=== PATIENT | male | born 1965 | race Caucasian/White ===

== ENCOUNTER 2017-03-08 16:55 | Observation (INO) | payer OTHER ==
[2017-03-08] VITALS (9 sets, daily range): BP systolic 114–167; BP diastolic 56–102; PULSE 70–107; RESP 13–18; TEMP 98–98.4; O2SAT 94–98
[~2017-03-08 16:55] MED LIST: IBUP-988 PO; LISI10TA3 PO; PERC5TAB12 PO; ZOFR4TAB PO
[2017-03-08] MEDS: NITROGLYCERIN 0.4 MG SL 25 TABS/BTL SL SCH ×2 (17:29→17:58)
[2017-03-08] MEDS ORDERED: SODIUM CHLORID 0.9% 500 ML INJ 500 ML IV ONE (17:30)
[2017-03-08] MEDS ORDERED: ASPIRIN 81 MG CHEW TAB PO ONE (17:30)
[2017-03-08] MEDS ORDERED: SODIUM CHLORIDE 0.9% FLUSH 10 ML FLUSH IVF PRN (17:30)
[2017-03-08] MEDS ORDERED: ONDANSETRON HCL 4 MG/2 ML VIAL IV PUSH ONE (17:30)
[2017-03-08] MEDS ORDERED: MORPHINE SULFATE 4 MG/ML INJ IV PUSH ONE (17:30)
--- NOTE | 2017-03-08 17:31 | PD ---
HPI Chief Complaint: Chest Pain Time Seen by Provider: 17:14 Travel History International Travel<30 days: No Contact w/Intl Traveler<30days: No Traveled to known affect area: No History of Present Illness HPI Patient is a 51-year-old male presenting to the emergency department for evaluation of chest pain. Patient states it started yesterday, while he was at work today it got progressively worse. The pain is localized over his left anterior chest wall, it radiates to his neck into his left arm. He states he feels slightly short of breath but denies any nausea, vomiting, fever, chills, headache, lightheadedness or dizziness, diaphoresis. He states pain increases with any exertion and he does report a nonproductive cough. He is a smoker, he has a history of hypertension. He has a significant family history, his father had an aneurysm as well as a heart attack and at age 42. His mother had a heart attack in her 50s and his brother at age 52 had a heart attack. PFSH Past Medical History Autoimmune Disease: No Blood Disorders: No Cancer: No Cardiovascular Problems: Yes (HTN) Diabetes: No Diminished Hearing: No Endocrine: No Glaucoma: No Genitourinary: No Hepatitis: No Hiatal Hernia: No Hypertension: Yes Immune Disorder: No Kidney Stones: Yes Musculoskeletal: Yes (injury to l knee) Neurologic: No Psychiatric: No Reproductive: No Respiratory: No Thyroid Disease: No Past Surgical History Abdominal Surgery: No AICD: No Body Medical Devices: none Cardiac Surgery: No Ear Surgery: No Endocrine Surgery: No Eye Surgery: No Genitourinary Surgery: Yes (lithotripsy) Joint Replacement: No Oral Surgery: Yes (wisdom teeth) Pacemaker: No Thoracic Surgery: No Tonsillectomy: Yes Social History Alcohol Use: Yes (OCCASIONAL) Tobacco Use: Yes (2PPD) Substance Use: No Allergies-Medications (Allergen,Severity, Reaction): Coded Allergies: No Known Allergies (Verified , 03/12/16) Reported Meds & Prescriptions Reported Meds & Active Scripts Active Zofran (Ondansetron HCl) 4 Mg Tab 4 Mg PO Q12HR PRN Percocet (Oxycodone-Acetaminophen) 5-325 mg Tab 1 Tab PO Q4H PRN Reported Advil (Ibuprofen) 200 Mg Tab 200 Mg PO Q6H PRN Lisinopril 10 Mg Tab 10 Mg PO DAILY Review of Systems Except as stated in HPI: all other systems reviewed are Neg General / Constitutional: No: Fever Eyes: No: Blurred Vision HENT: No: Headaches Cardiovascular: Positive: Chest Pain or Discomfort Respiratory: Positive: Shortness of Breath Gastrointestinal: No: Nausea, Vomiting, Abdominal Pain Physical Exam Narrative GENERAL: Obese, well-developed, well-nourished alert male. Resting comfortably in no acute distress. SKIN: Warm and dry. HEAD: Atraumatic. Normocephalic. EYES: Pupils equal and round. No scleral icterus. No injection or drainage. ENT: No nasal bleeding or discharge. Mucous membranes pink and moist. NECK: Trachea midline. No JVD. CARDIOVASCULAR: Regular rate and rhythm. RESPIRATORY: No accessory muscle use. Clear to auscultation. Breath sounds equal bilaterally. GASTROINTESTINAL: Abdomen soft, non-tender, nondistended. Hepatic and splenic margins not palpable. MUSCULOSKELETAL: Extremities without clubbing, cyanosis, or edema. No obvious deformities. NEUROLOGICAL: Awake and alert. No obvious cranial nerve deficits. Motor grossly within normal limits. Five out of 5 muscle strength in the arms and legs. Normal speech. PSYCHIATRIC: Appropriate mood and affect; insight and judgment normal. Data Data Last Documented VS Vital Signs Date Time Temp Pulse Resp B/P (MAP) Pulse Ox O2 Delivery O2 Flow Rate FiO2 03/08/17 19:20 13 03/08/17 19:18 76 132/77 (95) 98 Nasal Cannula 2.00 03/08/17 16:57 98.0 Orders Orders Electrocardiogram (03/08/17 ) Electrocardiogram (03/08/17 17:22) Ckmb (Isoenzyme) Profile (03/08/17 17:22) Complete Blood Count With Diff (03/08/17 17:22) Comprehensive Metabolic Panel (03/08/17 17:22) Magnesium (Mg) (03/08/17 17:22) Prothrombin Time / Inr (Pt) (03/08/17 17:22) Act Partial Throm Time (Ptt) (03/08/17 17:22) Troponin I (03/08/17 17:22) Lipase (03/08/17 17:22) Chest, Single Ap (03/08/17 17:22) Ecg Monitoring (03/08/17 17:22) Bilateral Bp Monitoring (03/08/17 17:22) Iv Access Insert/Monitor (03/08/17 17:22) Oximetry (03/08/17 17:22) Oxygen Administration (03/08/17 17:22) Aspirin Chew (Aspirin Chew) (03/08/17 17:30) Morphine Inj (Morphine Inj) (03/08/17 17:30) Sodium Chloride 0.9% Flush (Ns Flush) (03/08/17 17:30) Nitroglycerin Sl (Nitrostat Sl) (03/08/17 17:30) Sodium Chlorid 0.9% 500 Ml Inj (Ns 500 M (03/08/17 17:30) Ondansetron Inj (Zofran Inj) (03/08/17 17:30) Morphine Inj (Morphine Inj) (03/08/17 18:00) CKMB (03/08/17 17:40) CKMB% (03/08/17 17:40) Activity Bed Rest With Brp (03/08/17 19:21) Vital Signs (Adult) Q4H (03/08/17 19:21) Cardiac Rhythm .As Directed (03/08/17 19:21) Notify Dr: Other .PRN (03/08/17 19:21) Notify Dr. Parameters (03/08/17 19:21) Resp Oxygen Nasal Cannula (03/08/17 ) Diet Npo (03/09/17 Breakfast) Ckmb (Isoenzyme) Profile (03/08/17 19:21) Ckmb (Isoenzyme) Profile (03/08/17 22:21) Troponin I (03/08/17 19:21) Troponin I (03/08/17 22:21) Electrocardiogram (03/08/17 19:21) Electrocardiogram (03/08/17 22:21) ^ Obtain (03/08/17 19:21) Sodium Chloride 0.9% Flush (Ns Flush) (03/08/17 19:30) Sodium Chloride 0.9% Flush (Ns Flush) (03/08/17 21:00) Acetaminophen (Tylenol) (03/08/17 19:30) Morphine Inj (Morphine Inj) (03/08/17 19:30) Ondansetron Inj (Zofran Inj) (03/08/17 19:30) Nitroglycerin Sl (Nitrostat Sl) (03/08/17 19:30) Client Program Manager / Telemetry JONATHON.Q8H (03/08/17 19:21) Admit Order (Ed Use Only) (03/08/17 19:21) Labs Laboratory Tests Test 03/08/17 17:40 White Blood Count 11.9 TH/MM3 Red Blood Count 4.88 MIL/MM3 Hemoglobin 16.2 GM/DL Hematocrit 45.9 % Mean Corpuscular Volume 94.2 FL Mean Corpuscular Hemoglobin 33.2 PG Mean Corpuscular Hemoglobin Concent 35.3 % Red Cell Distribution Width 13.5 % Platelet Count 169 TH/MM3 Mean Platelet Volume 9.7 FL Neutrophils (%) (Auto) 56.5 % Lymphocytes (%) (Auto) 31.7 % Monocytes (%) (Auto) 7.3 % Eosinophils (%) (Auto) 3.6 % Basophils (%) (Auto) 0.9 % Neutrophils # (Auto) 6.7 TH/MM3 Lymphocytes # (Auto) 3.8 TH/MM3 Monocytes # (Auto) 0.9 TH/MM3 Eosinophils # (Auto) 0.4 TH/MM3 Basophils # (Auto) 0.1 TH/MM3 CBC Comment DIFF FINAL Differential Comment Prothrombin Time 10.1 SEC Prothromb Time International Ratio 1.0 RATIO Activated Partial Thromboplast Time 26.6 SEC Blood Urea Nitrogen 15 MG/DL Creatinine 1.44 MG/DL Random Glucose 103 MG/DL Total Protein 7.3 GM/DL Albumin 3.9 GM/DL Calcium Level 9.4 MG/DL Magnesium Level 1.9 MG/DL Alkaline Phosphatase 76 U/L Aspartate Amino Transf (AST/SGOT) 27 U/L Alanine Aminotransferase (ALT/SGPT) 26 U/L Total Bilirubin 0.4 MG/DL Sodium Level 140 MEQ/L Potassium Level 4.1 MEQ/L Chloride Level 106 MEQ/L Carbon Dioxide Level 27.6 MEQ/L Anion Gap 6 MEQ/L Estimat Glomerular Filtration Rate 52 ML/MIN Total Creatine Kinase 158 U/L Creatine Kinase MB 2.8 NG/ML Troponin I LESS THAN 0.02 NG/ML Lipase 221 U/L MDM Medical Decision Making Medical Screen Exam Complete: Yes Emergency Medical Condition: Yes Interpretation(s) Laboratory Tests Test 03/08/17 17:40 White Blood Count 11.9 TH/MM3 Red Blood Count 4.88 MIL/MM3 Hemoglobin 16.2 GM/DL Hematocrit 45.9 % Mean Corpuscular Volume 94.2 FL Mean Corpuscular Hemoglobin 33.2 PG Mean Corpuscular Hemoglobin Concent 35.3 % Red Cell Distribution Width 13.5 % Platelet Count 169 TH/MM3 Mean Platelet Volume 9.7 FL Neutrophils (%) (Auto) 56.5 % Lymphocytes (%) (Auto) 31.7 % Monocytes (%) (Auto) 7.3 % Eosinophils (%) (Auto) 3.6 % Basophils (%) (Auto) 0.9 % Neutrophils # (Auto) 6.7 TH/MM3 Lymphocytes # (Auto) 3.8 TH/MM3 Monocytes # (Auto) 0.9 TH/MM3 Eosinophils # (Auto) 0.4 TH/MM3 Basophils # (Auto) 0.1 TH/MM3 CBC Comment DIFF FINAL Differential Comment Prothrombin Time 10.1 SEC Prothromb Time International Ratio 1.0 RATIO Activated Partial Thromboplast Time 26.6 SEC Blood Urea Nitrogen 15 MG/DL Creatinine 1.44 MG/DL Random Glucose 103 MG/DL Total Protein 7.3 GM/DL Albumin 3.9 GM/DL Calcium Level 9.4 MG/DL Magnesium Level 1.9 MG/DL Alkaline Phosphatase 76 U/L Aspartate Amino Transf (AST/SGOT) 27 U/L Alanine Aminotransferase (ALT/SGPT) 26 U/L Total Bilirubin 0.4 MG/DL Sodium Level 140 MEQ/L Potassium Level 4.1 MEQ/L Chloride Level 106 MEQ/L Carbon Dioxide Level 27.6 MEQ/L Anion Gap 6 MEQ/L Estimat Glomerular Filtration Rate 52 ML/MIN Total Creatine Kinase 158 U/L Creatine Kinase MB 2.8 NG/ML Troponin I LESS THAN 0.02 NG/ML Lipase 221 U/L Vital Signs Date Time Temp Pulse Resp B/P (MAP) Pulse Ox O2 Delivery O2 Flow Rate FiO2 03/08/17 19:20 13 03/08/17 19:18 76 13 132/77 (95) 98 Nasal Cannula 2.00 03/08/17 17:55 95 16 137/65 (89) 96 2.00 03/08/17 17:39 96 16 114/56 (75) 98 Nasal Cannula 2.00 03/08/17 17:33 95 119/58 (78) 03/08/17 17:33 98 Nasal Cannula 2.00 03/08/17 17:31 98 Nasal Cannula 2.00 03/08/17 17:30 98 Nasal Cannula 2.00 03/08/17 17:29 85 141/89 (106) 03/08/17 16:57 98.0 107 18 167/102 (123) 98 Room Air Differential Diagnosis ACS versus USA versus NSTEMI versus other Narrative Course Patient is a 51-year-old male with a history of hypertension and tobacco use presenting with chest pain that started yesterday, the pain is worse with exertion. Patient's vital signs are stable, he does have a significant past family history. Labs and imaging ordered and pending. Chest x-ray shows no acute disease, labs reviewed, no acute abnormalities identified. Patient was given morphine, aspirin and 3 nitroglycerin. Pain is improved. At this time patient will be placed in the chest pain center for continued trending of his cardiac enzymes and for possibly more advanced testing. Patient and are agreeable to plan. Admit orders placed. Diagnosis Primary Impression: Chest pain Qualified Codes: R07.9 - Chest pain, unspecified Admitting Information Admitting Physician Requests: Observation Condition: Stable Josephine Kahn Mar 08, 2017 17:31
[2017-03-08 17:56] LABS: AUTOMATED NEUTROPHIL # 6.7 TH/MM3 (1.8-7.7); BASOPHIL # 0.1 TH/MM3 (0-0.2); BASOPHIL % 0.9 % (0.0-2.0); EOSINOPHIL # 0.4 TH/MM3 (0-0.4); EOSINOPHIL % 3.6 % (0.0-4.0); HEMATOCRIT 45.9 % (39.0-51.0); HEMOGLOBIN 16.2 GM/DL (13.0-17.0); LYMPH % 31.7 % (9.0-44.0); LYMPHOCYTE # 3.8 TH/MM3 (1.0-4.8); MEAN CELL VOLUME 94.2 FL (80.0-100.0); MEAN CORPUSCULAR HEMOGLOBIN 33.2 PG (27.0-34.0); MEAN CORPUSCULAR HGB CONC 35.3 % (32.0-36.0); MEAN PLATELET VOLUME 9.7 FL (7.0-11.0); MONO % 7.3 % (0.0-8.0); MONOCYTE # 0.9 TH/MM3 (0-0.9); NEUT % 56.5 % (16.0-70.0); PLATELET COUNT 169 TH/MM3 (150-450); RED BLOOD COUNT 4.88 MIL/MM3 (4.50-5.90); RED CELL DISTRIBUTION WIDTH 13.5 % (11.6-17.2); WHITE BLOOD COUNT 11.9 TH/MM3 (4.0-11.0)
[2017-03-08] MEDS ORDERED: MORPHINE SULFATE 2 MG/ML INJ IV PUSH ONE (18:00)
--- NOTE | 2017-03-08 18:00 | RADRPT ---
EXAM DATE/TIME: 03/08/2017 17:45 [facility] COMPARISON: No previous studies available for comparison. INDICATIONS : Chest pain. MEDICAL HISTORY : Hypertension. SURGICAL HISTORY : None. ENCOUNTER: Initial ACUITY: 2 days PAIN SCORE: 5/10 LOCATION: Left chest FINDINGS: A single view of the chest demonstrates the lungs to be symmetrically aerated without evidence of mas s, infiltrate or effusion. The cardiomediastinal contours are unremarkable. Osseous structures are intact. CONCLUSION: Normal examination. Juan Manuel Dudley MD on March 08, 2017 at 17:57 Board Certified Radiologist. This report was verified electronically.
[2017-03-08 18:08] LABS: PROTHROMBIN TIME - PATIENT 10.1 SEC (9.8-11.6)
[2017-03-08 18:25] LABS: ALBUMIN 3.9 GM/DL (3.4-5.0); AST (GOT) 27 U/L (15-37); BICARBONATE 27.6 MEQ/L (21.0-32.0); BLOOD UREA NITROGEN 15 MG/DL (7-18); CALCIUM 9.4 MG/DL (8.5-10.1); CHLORIDE 106 MEQ/L (98-107); CREATININE 1.44 MG/DL (0.60-1.30); GLOMERULAR FILTRATION RATE 52 ML/MIN (>89); GLUCOSE,RANDOM 103 MG/DL (74-106); LIPASE 221 U/L (73-393); MAGNESIUM 1.9 MG/DL (1.5-2.5); SODIUM (NA) 140 MEQ/L (136-145)
[2017-03-08 18:29] LABS: ALKALINE PHOSPHATASE 76 U/L (45-117); ALT (GPT) 26 U/L (12-78); TOTAL BILIRUBIN ADULT 0.4 MG/DL (0.2-1.0); TOTAL PROTEIN 7.3 GM/DL (6.4-8.2); TROPONIN I LESS THAN 0.02 NG/ML (0.02-0.05)
[2017-03-08] MEDS ORDERED: NITROGLYCERIN 0.4 MG SL 25 TABS/BTL SL PRN (19:30)
[2017-03-08] MEDS ORDERED: SODIUM CHLORIDE 0.9% FLUSH 10 ML FLUSH IV FLUSH PRN (19:30)
[2017-03-08] MEDS ORDERED: ACETAMINOPHEN 500 MG CPLT PO PRN (19:30)
[2017-03-08] MEDS ORDERED: ONDANSETRON HCL 4 MG/2 ML VIAL IV PUSH PRN (19:30)
[2017-03-08] MEDS ORDERED: MORPHINE SULFATE 4 MG/ML INJ IV PUSH PRN (19:30)
[2017-03-08] MEDS: SODIUM CHLORIDE 0.9% FLUSH 10 ML FLUSH IV FLUSH SCH (21:00)
[2017-03-08 21:29] LABS: TROPONIN I LESS THAN 0.02 NG/ML (0.02-0.05)
--- NOTE | 2017-03-08 21:39 | EKG ---
Date Performed: 03/08/2017 Time Performed: 17:18:09 PTAGE: 51 years EKG: Sinus rhythm NORMAL ECG Compared to prior electrocardiogram, rate has decreased PREVIOUS TRACING : 02/05/2007 20.10 DOCTOR: Patel Wylie Interpretating Date/Time 03/08/2017 21:39:03
[2017-03-09 00:04] VITALS: PULSE 68
[2017-03-09 00:13] VITALS: BP 134/80; PULSE 72; RESP 18; TEMP 97.9; O2SAT 94
[2017-03-09 00:42] LABS: TROPONIN I LESS THAN 0.02 NG/ML (0.02-0.05)
[2017-03-09 04:20] VITALS: BP 130/79; PULSE 68; RESP 18; TEMP 97.5; O2SAT 95
[2017-03-09 07:40] VITALS: BP 132/77; PULSE 66; RESP 18; TEMP 97.9; O2SAT 95
[2017-03-09 08:09] VITALS: PULSE 61
--- NOTE | 2017-03-09 08:55 | HHI.HP ---
HPI Primary Care Physician Tristian Horvath DO Chief Complaint Chest pain History of Present Illness 51-year-old male current smoker and hypertension presents to emergency room for further evaluation of chest pain. Onset yesterday afternoon around 3pm. Location left anterior chest. Radiation to left arm, left shoulder. Left arm described as numbness. Duration constant. Continues to have left arm numbness. No associated symptoms of nausea, vomiting, or diaphoresis. Endorses slight headache and mild dyspnea. No known precipitating factors. Relieving factors is laying down and "relaxing." Denies similar pain in the past. Endorses current nonproductive cough. No recent fever, chills, or illness. Review of Systems General: No fatigue,weakness, fever, chills, or recent illness change in appetite. Has been a general state of health. HEENT: No TRAN, no vision changes, no nasal congestion or drainage, no dysphasia CV: As stated above. No CP, pressure, palpitations, intermittent leg pain, dizziness RESP: Current smoker, nonproductive cough, dyspnea resolved. No wheeze or recent URI. GI: No nausea, vomiting, bowel changes, diarrhea, constipation, pain, distention , melena, blood in the stool. : No dysuria, urgency, frequency EXT: No lower leg edema, no paraesthesias MS: No discomfort or change in ROM, injury or trauma. NEURO: No difficulty with balance, LOC, motor/sensory deficits PSYCH: History of depression SKIN: No rashes, no concerning lesions Past Family Social History Allergies: Coded Allergies: No Known Allergies (Verified , 03/12/16) Past Medical History Hypertension, depression Past Surgical History Lithotripsy, tonsillectomy Reported Medications Reported Meds & Active Scripts Active Lisinopril 10 Mg Tab 10 Mg PO DAILY Active Ordered Medications Current Medications Medications (Trade) Dose Ordered Sig/Candelaria Route Start Time Stop Time Status Last Admin (NS Flush) 2 ml UNSCH PRN IVF 03/08/17 17:30 (NS Flush) 2 ml UNSCH PRN IV FLUSH 03/08/17 19:30 (NS Flush) 2 ml BID IV FLUSH 03/08/17 21:00 03/08/17 21:00 (Tylenol) 500 mg Q4H PRN PO 03/08/17 19:30 (Morphine Inj) 2 mg Q4H PRN IV PUSH 03/08/17 19:30 (Zofran Inj) 4 mg Q6H PRN IV PUSH 03/08/17 19:30 (Nitrostat Sl) 0.4 mg Q5M PRN SL 03/08/17 19:30 Family History Positive for early onset cardiovascular disease. Father age 42 from myocardial infarction. Father CABG 3 age 50. Social History Known hypertension. No known hyperlipidemia or diabetes. Current smoker 2 packs/daily. 70-alht-[id number] history. Endorses sedentary lifestyle. Works in [employer]. Past Cardiac testing None Physical Exam Vital Signs Vital Signs Date Time Temp Pulse Resp B/P (MAP) Pulse Ox O2 Delivery O2 Flow Rate FiO2 03/09/17 08:09 61 03/09/17 07:40 97.9 66 18 132/77 (95) 95 03/09/17 04:20 97.5 68 18 130/79 (96) 95 03/09/17 00:13 97.9 72 18 134/80 (98) 94 03/09/17 00:04 68 03/08/17 21:31 98.4 76 18 130/81 (97) 94 03/08/17 21:25 70 03/08/17 20:00 98 Nasal Cannula 2.00 03/08/17 19:20 13 03/08/17 19:18 76 13 132/77 (95) 98 Nasal Cannula 2.00 03/08/17 17:55 95 16 137/65 (89) 96 2.00 03/08/17 17:39 96 16 114/56 (75) 98 Nasal Cannula 2.00 03/08/17 17:33 95 119/58 (78) 03/08/17 17:33 98 Nasal Cannula 2.00 03/08/17 17:31 98 Nasal Cannula 2.00 03/08/17 17:30 98 Nasal Cannula 2.00 03/08/17 17:29 85 141/89 (106) 03/08/17 16:57 98.0 107 18 167/102 (123) 98 Room Air Physical Exam GENERAL: Alert WN, WD, NAD, pleasant, obese, male who appears older than stated age. HEAD: NC, AT CV: RRR, without murmur, rub, gallop, no JVD, S1-S2 no S3-S4. RESP: Clear lungs throughout bilateral, no crackles, wheeze, rhonchi, symmetrical chest rise, nonlabored, able to speak in full sentences ABD: Soft, NT, ND, no masses, positive bowel tones EXT: Pulses +24, no dependent edema MS: Normal tone 4 extremities, nontender, no obvious deformities, full range of motion NEURO: CN II through CN XII grossly intact, motor strength 5/5 PSYCH: A+O 3, pleasant affect, appropriate speech, mood, insight and judgment SKIN: Normal turgor, normal texture, no lesions, no rashes, multiple tattoos Laboratory Laboratory Tests Test 03/08/17 17:40 03/08/17 20:39 03/08/17 23:52 White Blood Count 11.9 Red Blood Count 4.88 Hemoglobin 16.2 Hematocrit 45.9 Mean Corpuscular Volume 94.2 Mean Corpuscular Hemoglobin 33.2 Mean Corpuscular Hemoglobin Concent 35.3 Red Cell Distribution Width 13.5 Platelet Count 169 Mean Platelet Volume 9.7 Neutrophils (%) (Auto) 56.5 Lymphocytes (%) (Auto) 31.7 Monocytes (%) (Auto) 7.3 Eosinophils (%) (Auto) 3.6 Basophils (%) (Auto) 0.9 Neutrophils # (Auto) 6.7 Lymphocytes # (Auto) 3.8 Monocytes # (Auto) 0.9 Eosinophils # (Auto) 0.4 Basophils # (Auto) 0.1 CBC Comment DIFF FINAL Differential Comment Prothrombin Time 10.1 Prothromb Time International Ratio 1.0 Activated Partial Thromboplast Time 26.6 Blood Urea Nitrogen 15 Creatinine 1.44 Random Glucose 103 Total Protein 7.3 Albumin 3.9 Calcium Level 9.4 Magnesium Level 1.9 Alkaline Phosphatase 76 Aspartate Amino Transf (AST/SGOT) 27 Alanine Aminotransferase (ALT/SGPT) 26 Total Bilirubin 0.4 Sodium Level 140 Potassium Level 4.1 Chloride Level 106 Carbon Dioxide Level 27.6 Anion Gap 6 Estimat Glomerular Filtration Rate 52 Total Creatine Kinase 158 143 146 Creatine Kinase MB 2.8 2.0 1.9 Troponin I LESS THAN 0.02 LESS THAN 0.02 LESS THAN 0.02 Lipase 221 Result Diagram: 03/08/17 1740 03/08/17 1740 Imaging Last Impressions Chest X-Ray 03/08/17 1722 Signed Impressions: Service Date/Time: Wednesday, March 08, 2017 17:45 - CONCLUSION: Normal examination. Juan Manuel Dudley MD Course EKG Normal sinus rhythm, normal axis, no ST or T-segment changes Caprini VTE Risk Assessment Caprini VTE Risk Assessment: No/Low Risk (score <= 1) Caprini Risk Assessment Model Point Value = 1 Point Value = 2 Point Value = 3 Point Value = 5 Age 41-60 Minor surgery BMI > 25 kg/m2 Swollen legs Varicose veins or History of unexplained or recurrent spontaneous Oral contraceptives or hormone replacement Sepsis (< 1 month) Serious lung disease, including pneumonia (< 1 month) Abnormal pulmonary function Acute myocardial infarction Congestive heart failure (< 1 month) History of inflammatory bowel disease Medical patient at bed rest Age 61-74 Arthroscopic surgery Major open surgery (> 45 min) Laparoscopic surgery (> 45 min) Malignancy Confined to bed (> 72 hours) Immobilizing plaster cast Central venous access Age >= 75 History of VTE Family history of VTE Factor V Leiden Prothrombin 11007H Lupus anticoagulant Anticardiolipin antibodies Elevated serum homocysteine Heparin-induced thrombocytopenia Other congenital or acquired thrombophilia Stroke (< 1 month) Elective arthroplasty Hip, pelvis, or leg fracture Acute spinal cord injury (< 1 month) Prophylaxis Regimen Total Risk Factor Score Risk Level Prophylaxis Regimen 0-1 Low Early ambulation 2 Moderate Order ONE of the following: *Sequential Compression Device (SCD) *Heparin 5000 units SQ BID 3-4 Higher Order ONE of the following medications: *Heparin 5000 units SQ TID *Enoxaparin/Lovenox 40 mg SQ daily (WT < 150 kg, CrCl > 30 mL/min) *Enoxaparin/Lovenox 30 mg SQ daily (WT < 150 kg, CrCl > 10-29 mL/min) *Enoxaparin/Lovenox 30 mg SQ BID (WT < 150 kg, CrCl > 30 mL/min) AND/OR *Sequential Compression Device (SCD) 5 or more Highest Order ONE of the following medications: *Heparin 5000 units SQ TID (Preferred with Epidurals) *Enoxaparin/Lovenox 40 mg SQ daily (WT < 150 kg, CrCl > 30 mL/min) *Enoxaparin/Lovenox 30 mg SQ daily (WT < 150 kg, CrCl > 10-29 mL/min) *Enoxaparin/Lovenox 30 mg SQ BID (WT < 150 kg, CrCl > 30 mL/min) AND *Sequential Compression Device (SCD) Assessment and Plan Assessment and Plan #1 Chest pain-admitted chest pain center. Ruled out with 3 sets of EKGs, cardiac enzymes, monitor overnight. Seen and evaluated by Dr. Thomas Braden. Proceed with exercise stress test this morning. If unremarkable plan for discharge home with follow-up with PCP. Patient is agreeable plan of care. #2 Tobacco use-strongly encouraged and stressed the importance of tobacco cessation. Instructed to quit smoking, especially important with known family early onset cardiovascular disease. #3 Hypertension-continue to lisinopril. Discussed importance of increasing daily activity, weight loss, and adapting to a low sodium diet. Britany Linn [facility] Mar 09, 2017 08:55
[2017-03-09] MEDS: SODIUM CHLORIDE 0.9% FLUSH 10 ML FLUSH IV FLUSH SCH (09:00)
--- NOTE | 2017-03-09 09:41 | EKG ---
Date Performed: 03/08/2017 Time Performed: 23:52:58 PTAGE: 51 years EKG: Sinus rhythm BORDERLINE ECG Since PREVIOUS TRACING , no significant change noted DOCTOR: Thomas Braden Interpretating Date/Time 03/09/2017 09:41:10
--- NOTE | 2017-03-09 09:45 | EKG ---
Date Performed: 03/08/2017 Time Performed: 20:56:57 PTAGE: 51 years EKG: Sinus rhythm BORDERLINE ECG PREVIOUS TRACING : 03/08/2017 17.18 Since previous tracing, no significant change noted DOCTOR: Thomas Braden Interpretating Date/Time 03/09/2017 09:44:53
[2017-03-09 11:19] VITALS: BP 146/86; PULSE 65; RESP 18; TEMP 97.8; O2SAT 95
[2017-03-09] MEDS ORDERED: LISINOPRIL 10 MG TAB PO SCH (12:15)
--- NOTE | 2017-03-09 13:00 | HHI.DCPOC ---
Discharge Care Plan Diagnosis: (1) Atypical chest pain (2) Tobacco abuse Goals to Promote Your Health * To prevent worsening of your condition and complications * To maintain your health at the optimal level Directions to Meet Your Goals Take your medications as prescribed Follow your dietary instruction Follow activity as directed Keep your appointments as scheduled Take your immunizations and boosters as scheduled If your symptoms worsen call your PCP, if no PCP go to Urgent Care Center or Emergency Room Smoking is Dangerous to Your Health. Avoid second hand smoke Call the 24-hour hour crisis hotline for domestic abuse at Britany Linn Mar 09, 2017 13:00
--- NOTE | 2017-03-10 13:04 | TR ---
Date Performed: 03/09/2017 Time Performed: 12:35:42 DOCTOR: Raymon Arshad DRUG LIST: CLINICAL HISTORY: REASON FOR TEST: REASON FOR ENDING: OBSERVATION: CONCLUSION: Clay procotol completed. Stopped sec to leg fatigue and reaching target heart rate. Maximum XD=729 Target HR Achieved=86.0% Maximum LX=788/82 Total Exercise Time=4:05. No reprod chest pain. No ectopy. No st t segment changes to sugg ischemia. Fair exercise tolerance. Normal bp respons e. Recovery quick and unremarkable. COMMENTS: Conclusion: Normal treadmill exercise. No evidence of ischemia.
== END 2017-03-09 18:06 | disposition home or self-care (01) ==
LOC: NEPE 16:55 → NEDA 19:23 → NEPGCP 20:52
PROVIDERS: ADMIT Internal Medicine Interventional Cardiology; ATTEND Internal Medicine Interventional Cardiology
DX: R07.89 Other chest pain (principal); R06.02 Shortness of breath; R20.0 Anesthesia of skin; R05 Cough; I10 Essential (primary) hypertension; F32.9 Major depressive disorder, single episode, unspecified; F17.200 Nicotine dependence, unspecified, uncomplicated; Z79.899 Other long term (current) drug therapy; Z82.49 Family history of ischemic heart disease and other diseases of the circulatory system; Z71.6 Tobacco abuse counseling
CPT/HCPCS: 71010; 80053; 82550; 82552; 83690; 83735; 84484; 85025; 85610; 85730; 93005; 93017; 96361; 96374; 96375; 99285; G0378; J2270; J2405; J7040